=== PATIENT | female | born 1995 | race Caucasian/White ===

== ENCOUNTER 2017-04-02 15:28 | Emergency (ER) | payer BC, OTHER ==
[2017-04-02 15:45] VITALS: BP 97/63; PULSE 74; TEMP 99; BMI 25.3
--- NOTE | 2017-04-02 16:06 | PDOC ---
History of Present Illness - General Chief Complaint: Foreign Body (FB) Stated Complaint: INFECTED PIERCING Time Seen by Provider: 04/02/17 16:04 Past History - Past Medical History Allergies/Adverse Reactions: Allergies Allergy/AdvReac Type Severity Reaction Status Date / Time No Known Allergies Allergy Verified 04/02/17 15:42 Home Medications: Ambulatory Orders Albuterol Sulfate 0.5% [Ventolin 0.5%] 1 neb IH QID PRN 11/08/12 Asthma: Yes Cancer: No Cardiac Disorders: No Diabetes: No HTN: No Suicide Attempt (Hx): No Seizures: No Thyroid Disease: No - Reproductive History (#): 1 Para: 0 - Immunization History Td Vaccination: Yes TDAP Vaccination: Yes Immunization Up to Date: Yes - Psycho/Social/Smoking Cessation Hx Anxiety: No Suicidal Ideation: No Smoking Status: No Smoking History: Never smoked Years of Tobacco Use: 0 Have you smoked in the past 12 months: No Number of Cigarettes Smoked Daily: 0 Cigars Per Day: 0 Hx Alcohol Use: No Drug/Substance Use Hx: No Substance Use Type: None Hx Substance Use Treatment: No *Physical Exam - Vital Signs Last Vital Signs Temp Pulse Resp BP Pulse Ox 99 F 74 19 97/63 99 04/02/17 15:42 04/02/17 15:42 04/02/17 15:42 04/02/17 15:42 04/02/17 15:42
--- NOTE | 2017-04-02 16:44 | PDOC ---
History of Present Illness - General Chief Complaint: Foreign Body (FB) Stated Complaint: INFECTED PIERCING Time Seen by Provider: 04/02/17 16:04 History Source: Patient Exam Limitations: No Limitations - History of Present Illness Initial Comments: 04/02/17 16:37 Patient here with complaints of right-sided nostril earring retention. States had piercing one year ago has had no problems until recently where she has been unable to extract this nasal earring. Denies swelling, denies purulent drainage , denies fever. 04/02/17 16:44 04/02/17 16:45 Occurred: reports: yesterday Severity: reports: mild Pain Location: reports: face Associated Symptoms (Fall): denies symptoms Past History - Travel Traveled outside of the country in the last 30 days: No Close contact w/someone who was outside of country & ill: No - Past Medical History Allergies/Adverse Reactions: Allergies Allergy/AdvReac Type Severity Reaction Status Date / Time No Known Allergies Allergy Verified 04/02/17 15:42 Home Medications: Ambulatory Orders Albuterol Sulfate 0.5% [Ventolin 0.5%] 1 neb IH QID PRN 11/08/12 Asthma: Yes Cancer: No Cardiac Disorders: No Diabetes: No HTN: No Suicide Attempt (Hx): No Seizures: No Thyroid Disease: No - Reproductive History (#): 1 Para: 0 - Immunization History Td Vaccination: Yes TDAP Vaccination: Yes Immunization Up to Date: Yes - Psycho/Social/Smoking Cessation Hx Anxiety: No Suicidal Ideation: No Smoking Status: No Smoking History: Never smoked Years of Tobacco Use: 0 Have you smoked in the past 12 months: No Number of Cigarettes Smoked Daily: 0 Cigars Per Day: 0 Hx Alcohol Use: No Drug/Substance Use Hx: No Substance Use Type: None Hx Substance Use Treatment: No Trauma Specific PMHX - Complaint Specific PMHX Back Injury: No Neck Injury: No Review of Systems - Review of Systems Able to Perform ROS?: Yes Is the patient limited [place] proficient: Yes Constitutional: Yes: Symptoms Reported, See HPI, Malaise Integumentary: Yes: Symptoms Reported, See HPI, Other (right nostril earring some pain) Neurological: No: Symptoms reported All Other Systems: Reviewed and Negative *Physical Exam - Vital Signs Last Vital Signs Temp Pulse Resp BP Pulse Ox 99 F 74 19 97/63 99 04/02/17 15:42 04/02/17 15:42 04/02/17 15:42 04/02/17 15:42 04/02/17 15:42 - Physical Exam General Appearance: Yes: Nourished, Appropriately Dressed, Apparent Distress, Mild Distress HEENT: positive: JUHI, Normal ENT Inspection, TMs Normal, Other Neck: negative: Tender, Lymphadenopathy (R), Lymphadenopathy (L) Extremity: positive: Normal Capillary Refill, Normal Inspection Integumentary: positive: Normal Color, Swelling, Other (right nostril piercing with some states that erythema and swelling to the inner aspect of nostril but earring is mobile.) 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
== END 2017-04-02 16:53 | disposition home or self-care (01) ==
LOC: JERFT 15:28
PROC: 09CK0ZZ Extirpation of Matter from Nasal Mucosa and Soft Tissue, Open Approach (ICD-10-PCS; principal; 2017-04-02)
DX: T17.1XXA Foreign body in nostril, initial encounter (principal); M79.5 Residual foreign body in soft tissue; Y99.8 Other external cause status; Y93.89 Activity, other specified; Y92.038 Other place in apartment as the place of occurrence of the external cause
CPT/HCPCS: 99281-25

== ENCOUNTER 2017-09-18 10:09 | Emergency (ER) | payer OTHER ==
[2017-09-18 10:14] VITALS: BP 115/56; PULSE 89; TEMP 98.5; BMI 26.4
--- NOTE | 2017-09-18 10:38 | PDOC ---
History of Present Illness - General Chief Complaint: Respiratory Stated Complaint: COLD, CONGESTED Time Seen by Provider: 09/18/17 10:25 History Source: Patient Exam Limitations: No Limitations - History of Present Illness Initial Comments: 09/18/17 10:35 22 yr female with rash to face, arms , not itchy . Son has impetigo. pt had flu like illness last week. Past History - Past Medical History Allergies/Adverse Reactions: Allergies Allergy/AdvReac Type Severity Reaction Status Date / Time No Known Allergies Allergy Verified 09/18/17 10:14 Home Medications: Ambulatory Orders Sulfamethoxazole/Trimethoprim [Bactrim Ds Tablet] 1 each PO BID #20 tablet 09/18 Asthma: Yes Cancer: No Cardiac Disorders: No COPD: No Diabetes: No HTN: No Seizures: No Thyroid Disease: No - Reproductive History (#): 1 Para: 0 - Immunization History Td Vaccination: Yes TDAP Vaccination: Yes Immunization Up to Date: Yes - Suicide/Smoking/Psychosocial Hx Smoking Status: No Smoking History: Never smoked Years of Tobacco Use: 0 Have you smoked in the past 12 months: No Number of Cigarettes Smoked Daily: 0 Cigars Per Day: 0 Hx Alcohol Use: No Drug/Substance Use Hx: No Substance Use Type: None Hx Substance Use Treatment: No Review of Systems - Review of Systems Able to Perform ROS?: Yes Is the patient limited [place]ese proficient: No Constitutional: No: Symptoms Reported HEENTM: No: Symptoms Reported Respiratory: No: Symptoms reported Cardiac (ROS): No: Symptoms Reported ABD/GI: No: Symptoms Reported : No: Symptoms Reported Integumentary: Yes: Symptoms Reported *Physical Exam - Vital Signs Last Vital Signs Temp Pulse Resp BP Pulse Ox 98.5 F 89 18 115/56 97 09/18/17 10:11 09/18/17 10:11 09/18/17 10:11 09/18/17 10:11 09/18/17 10:11 - Physical Exam General Appearance: Yes: Nourished, Appropriately Dressed HEENT: positive: EOMI, JUHI, Normal ENT Inspection, TMs Normal, Pharynx Normal Neck: positive: Supple. negative: Tender, Thyromegaly Respiratory/Chest: positive: Lungs Clear, Normal Breath Sounds. negative: Chest Tender Cardiovascular: positive: Regular Rhythm, Regular Rate Extremity: positive: Normal Capillary Refill, Normal Inspection, Normal Range of Motion Integumentary: positive: Rash (bilateral forearms, forehead with crusted lesions multiple stages of healed and unhealed vesicular like , non puritic, no drainage, ) Neurologic: positive: Fully Oriented, Alert, Normal Mood/Affect, Normal Response , Motor Strength /5 Medical Decision Making - Medical Decision Making 09/19/17 07:15 cc: rash to forehead (started on forehead) now has spread to bilateral arms AC areas and fingers. *DC/Admit/Observation/Transfer Diagnosis at time of Disposition: Rash and nonspecific skin eruption - Discharge Dispostion Disposition: HOME Condition at time of disposition: Good - Prescriptions Prescriptions: Sulfamethoxazole/Trimethoprim [Bactrim Ds Tablet] 1 each PO BID #20 tablet - Referrals Referrals: Sasha Eli [Primary Care Provider] - Sarah Michael MD [Staff Physician] - - Patient Instructions Additional Instructions: take the Bactrim as prescribed for 10 days cool water and antibacterial soap such as Lever 2000 or Dial (do not share the soap!!) do not share towels or bed sheets with others as this can be highly contagious return to ER for any worsening symptoms otherwise see your PMD or the commissary officer for follow up - Post Discharge Activity
== END 2017-09-18 10:39 | disposition home or self-care (01) ==
LOC: JERFT 10:09
DX: R21 Rash and other nonspecific skin eruption (principal)
CPT/HCPCS: 99281-25

== ENCOUNTER 2019-03-27 08:35 | Emergency (ER) | payer OTHER ==
[2019-03-27 08:39] VITALS: BP 127/61; PULSE 101; TEMP 98.1; BMI 29.0
[2019-03-27] MEDS ORDERED: LIDOCAINE 5% TOPICAL PATCH TP ONE (09:14)
--- NOTE | 2019-03-27 09:25 | PDOC ---
History of Present Illness - General Chief Complaint: Pain, Acute Stated Complaint: BACK INJURY 4MONTHS PRG Time Seen by Provider: 03/27/19 09:03 History Source: Patient Exam Limitations: No Limitations Past History - Past Medical History Allergies/Adverse Reactions: Allergies Allergy/AdvReac Type Severity Reaction Status Date / Time No Known Allergies Allergy Verified 03/27/19 08:40 Home Medications: Ambulatory Orders NK [No Known Home Medication] 02/21/18 Asthma: Yes Cancer: No Cardiac Disorders: No COPD: No Diabetes: No HTN: No Seizures: No Thyroid Disease: No - Reproductive History (#): 1 Para: 0 - Immunization History Td Vaccination: Yes TDAP Vaccination: Yes Immunization Up to Date: Yes - Suicide/Smoking/Psychosocial Hx Smoking Status: No Smoking History: Never smoked Years of Tobacco Use: 0 Have you smoked in the past 12 months: No Number of Cigarettes Smoked Daily: 0 Cigars Per Day: 0 Hx Alcohol Use: No Drug/Substance Use Hx: No Substance Use Type: None Hx Substance Use Treatment: No *Physical Exam - Vital Signs Last Vital Signs Temp Pulse Resp BP Pulse Ox 98.1 F 101 H 18 127/61 96 03/27/19 08:37 03/27/19 08:37 03/27/19 08:37 03/27/19 08:37 03/27/19 08:37 - Physical Exam General Appearance: No: Apparent Distress Respiratory/Chest: positive: Lungs Clear, Normal Breath Sounds. negative: Respiratory Distress Cardiovascular: positive: Regular Rhythm, Regular Rate, S1, S2. negative: Murmur Gastrointestinal/Abdominal: positive: Soft, Other (gravid uterus). negative: Tender Musculoskeletal: positive: Vertebral Tenderness (mild along tailbone region, no ecchymosis/bruising) Integumentary: positive: Normal Color. negative: Swelling, Ecchymosis Neurologic: positive: Alert, Normal Mood/Affect, Other (ambulatory) ED Treatment Course - RADIOLOGY Radiology Studies Ordered: Category Date Time Status OB LIMITED US [US] Stat Ultrasound 03/27/19 09:11 Ordered Medical Decision Making - Medical Decision Making 24 y/o F hx of asthma (hx of 2 abortions), LNMP 5/14, currently 16 weeks , presents c/o nonradiating lower back pain s/p fall. Patient states she slipped on T-shirt, landing on back. Denies head trauma, LOC. Had slight abdominal pain before but none right now. Denies sob, cp, n/v, vaginal bleeding , numbness/tingling/weakness of extremities, bowel/bladder incontinence. Patient 's ORAL THERAPIST is Dr. Salazar; last evaluation was 2 weeks ago. Not suspicious for bone fracture, cauda equina Patient took Tylenol x1 prior to coming Does not want further PO pain meds Plan: OB US, Lido patch 03/27/19 09:21 US shows IUP with heart tone Stable for dc 03/27/19 10:55 *DC/Admit/Observation/Transfer Diagnosis at time of Disposition: Back pain Qualifiers: Back pain location: low back pain Chronicity: acute Back pain laterality: midline Sciatica presence: without sciatica Qualified Code(s): M54.5 - Low back pain - Discharge Dispostion Disposition: HOME Condition at time of disposition: Stable Decision to Admit order: No - Referrals - Patient Instructions Additional Instructions: Thank you for choosing [facility]. It was a pleasure taking care of you. You may take Tylenol 650 mg every 6 hours by mouth as needed for mild to moderate pain. Take Motrin with food. Apply warm compresses to back Continue follow-up with your ORAL THERAPIST Return to the Emergency Department if your symptoms worsen or persist, you have fever, shortness of breath, chest pain, severe abdominal pain, vomiting, vaginal bleeding or other concerning symptoms. - Post Discharge Activity
[2019-03-27] MEDS ORDERED: LIDOCAINE 5% TOPICAL PATCH ONE (10:20)
== END 2019-03-27 10:57 | disposition home or self-care (01) ==
LOC: JER 08:35
DX: O26.892 Other specified pregnancy related conditions, second trimester (principal); M54.5 Low back pain; W18.39XA Other fall on same level, initial encounter; Y93.89 Activity, other specified; Y92.89 Other specified places as the place of occurrence of the external cause; Y99.8 Other external cause status; Z3A.16 16 weeks gestation of pregnancy
CPT/HCPCS: 76815; 99282-25

== ENCOUNTER 2019-08-18 01:40 | Emergency (ER) | payer OTHER ==
[2019-08-18 02:41] VITALS: BP 104/60; PULSE 77; TEMP 97.8; BMI 28.3
== END 2019-08-18 04:40 | disposition left against medical advice (07) ==
LOC: JER 01:40
DX: Z53.21 Procedure and treatment not carried out due to patient leaving prior to being seen by health care provider (principal)
CPT/HCPCS: 99281-25

== ENCOUNTER 2021-06-28 13:42 | Emergency (ER) | payer OTHER ==
[2021-06-28 14:00] VITALS: BP 110/63; PULSE 99; TEMP 98.1; BMI 29.2
== END 2021-06-28 15:35 | disposition home or self-care (01) ==
LOC: JERFT 13:42 → JER 13:42 → JERFT 15:35
DX: S91.202A Unspecified open wound of left great toe with damage to nail, initial encounter (principal); W22.8XXA Striking against or struck by other objects, initial encounter
CPT/HCPCS: 73660-TC-LT-FY; 99283-25

== ENCOUNTER 2023-08-05 19:32 | Emergency (ER) | payer OTHER ==
[2023-08-05 19:43] VITALS: BP 117/71; PULSE 87; RESP 18; BMI 32.0
[2023-08-05 19:51] VITALS: TEMP 97.6
[2023-08-05] MEDS ORDERED: ACETAMINOPHEN 1000 MG/100 ML BAG IVPB ONE (20:11)
[2023-08-05] MEDS ORDERED: FAMOTIDINE 20 MG/50 ML IVPB 20 MG/50 ML MG IVPB ONE ×2 (20:11→20:42)
[2023-08-05] MEDS ORDERED: ACETAMINOPHEN INJECTION 100 ML IVPB ONE (20:41)
[2023-08-05 20:54] LABS: BASO % 0.7 % (0-2.0); EOS % 4.1 % (0-4.5); HEMATOCRIT 41.4 % (32.4-45.2); HEMOGLOBIN 13.6 GM/dL (10.7-15.3); LYMPH % 26.5 % (8-40); MCH 29.8 pg (25.7-33.7); MCHC 32.9 g/dl (32.0-36.0); MEAN CELL VOLUME 90.5 fl (80-96); NEUT % 58.7 % (42.8-82.8); PLATELET COUNT 306 10^3/uL (134-434); RBC 4.57 M/mm3 (3.60-5.2); RDW 14.4 % (11.6-15.6); WHITE BLOOD COUNT 8.1 K/mm3 (4.0-10.0)
[2023-08-05 21:09] LABS: POTASSIUM 5.2 mmol/L (3.5-5.1)
[2023-08-05 21:11] LABS: CALCIUM 9.4 mg/dL (8.5-10.1)
[2023-08-05 21:12] LABS: ALBUMIN 3.6 g/dl (3.4-5.0); BLOOD UREA NITROGEN 14.8 mg/dL (7-18); MAGNESIUM 2.1 mg/dL (1.8-2.4)
[2023-08-05 21:15] LABS: CREATININE 0.8 mg/dL (0.55-1.3)
[2023-08-05 21:16] LABS: TOT PROT 7.4 g/dl (6.4-8.2)
[2023-08-05 21:17] LABS: BILIRUBIN,TOTAL 0.3 mg/dL (0.2-1)
== END 2023-08-05 22:03 | disposition home or self-care (01) ==
LOC: JER 19:32
PROC: 3E033GC Introduction of Other Therapeutic Substance into Peripheral Vein, Percutaneous Approach (ICD-10-PCS; principal; 2023-08-05)
PROC: 3E033GC Introduction of Other Therapeutic Substance into Peripheral Vein, Percutaneous Approach (ICD-10-PCS; 2023-08-05)
DX: O99.511 Diseases of the respiratory system complicating pregnancy, first trimester (principal); R06.02 Shortness of breath; O26.891 Other specified pregnancy related conditions, first trimester; R07.89 Other chest pain; Z3A.01 Less than 8 weeks gestation of pregnancy
CPT/HCPCS: 36415; 80053; 83690; 83735; 84484; 84702; 85025; 93005; 93010; 99284-25

== ENCOUNTER 2024-12-28 22:23 | Emergency (ER) | payer OTHER ==
[2024-12-28 22:30] VITALS: BP 120/60; PULSE 89; RESP 18; TEMP 98.9; BMI 29.2
[2024-12-28] MEDS ORDERED: ACETAMINOPHEN 325 MG TABLET (FP) ONE (23:04)
[2024-12-28] MEDS ORDERED: LIDOCAINE 4% PATCH TP ONE (23:05)
[2024-12-28] MEDS: ACETAMINOPHEN 325 MG TABLET (FP) PO ONE (23:23)
[2024-12-28] MEDS: LIDOCAINE 5% TOPICAL PATCH TP ONE (23:23)
[2024-12-28 23:43] LABS: PH,URINE 5.5 (5.0-8.0); URINE APPEARANCE CLEAR; URINE BILIRUBIN NEGATIVE (NEGATIVE); URINE COLOR YELLOW; URINE GLUCOSE (UA) NEGATIVE (NEGATIVE); URINE KETONE NEGATIVE (NEGATIVE); URINE LEUK ESTERASE NEGATIVE (NEGATIVE); URINE NITRITE NEGATIVE (NEGATIVE); URINE PROTEIN NEGATIVE (NEGATIVE); URINE UROBILINOGEN 0.2 mg/dL (0.2-1.0)
[2024-12-28 23:46] LABS: HCG,QUALITATIVE URINE Negative
[2024-12-28] MEDS ORDERED: KETOROLAC TROMETHAMINE 15 MG/ML VIAL IM ONE (23:51)
[2024-12-29] MEDS ORDERED: LIDOCAINE PATCH REMOVAL MC ONE (11:00)
== END 2024-12-29 | disposition home or self-care (01) ==
LOC: JER 22:23
DX: M54.50 Low back pain, unspecified (principal); R11.0 Nausea; X50.1XXA Overexertion from prolonged static or awkward postures, initial encounter
CPT/HCPCS: 81003; 84703; 87086; 99283-25